=== PATIENT | female | born 1990 | race Caucasian/White ===

== ENCOUNTER → 2016-08-18 | Outpatient (REF) | payer BC, MEDICAID | LOC: M LAB REF 12:56 | PROVIDERS: ATTEND Advanced Practice Midwife | DX: Z34.02 Encounter for supervision of normal first pregnancy, second trimester (principal); Z36 Encounter for antenatal screening of mother; Z3A.00 Weeks of gestation of pregnancy not specified ==

== ENCOUNTER → 2016-09-15 | Outpatient (CLI) | payer BC, MEDICAID ==
--- NOTE | 2016-09-15 12:18 | REP ---
Obstetric ultrasound for anatomy: There is a single intrauterine gestation in a breech presentation. There is movement and cardiac activity, the heart rate is 136 beats per minute. The placenta is anterior. There is no placenta previa or abruptio. The placenta is grade 0 maturity. The amniotic fluid volume subjectively is normal. The cervix is 3.3 cm length. The maternal adnexa and cul-de-sac are unremarkable. By the ultrasound today the gestational age is 19 weeks 5 days with an CLARISA of 02/04/2017. Gestational age by LMP is 19 weeks 6 days. weight is 321 grams (a 0 pounds, 11 ounces). This is the 47th percentile for 19 weeks 6 days. The following anatomic structures are identified and are unremarkable: Intracranial lateral ventricles, choroid plexus, cerebellum, face, upper lip, facial profile, lungs, four-chamber heart, cardiac right and left ventricular outflow tracts, diaphragm, stomach, cord insertion, bladder and upper lower extremities. There is a single umbilical artery in the umbilical cord measuring a two vessel umbilical cord. The kidneys and spine are not optimally demonstrated. A followup study dedicated to these structures might be considered. Impression: Two-vessel cord. The kidneys and spine are not optimally demonstrated. Otherwise, no anomalies are identified. Signed by Manuelito Lambert MD 09/15/2016 12:10 P
== END ==
LOC: M RAD 10:24
PROVIDERS: ATTEND Advanced Practice Midwife
DX: Z36 Encounter for antenatal screening of mother (principal); Z3A.19 19 weeks gestation of pregnancy

== ENCOUNTER → 2016-09-30 | Outpatient (CLI) | payer BC, MEDICAID ==
--- NOTE | 2016-09-30 10:39 | REP ---
Clinical: Anatomical evaluation. Comparison: 09/15/2016 . Findings: Examination demonstrates a single live intrauterine in cephalic presentation. motion is identified by technologist. Placenta is noted anteriorly and grade I without evidence for placenta previa or abruption. Amniotic fluid volume is normal. Cervix measures 3.3 cm in length and appears closed. No evidence for nuchal cord. Gestational age by LMP 22 weeks 0 days with CLARISA 02/03/2017 . Gestational age by current measurements 22 weeks 0 days with CLARISA 02/03/2017 . FHR equals 141 beats per minute. Estimated weight 467 grams ( 45th percentile). Anatomical assessment demonstrates normal structures including cranium, choroid plexus, cavum, cerebellum/posterior fossa, facial features, lungs, four-chamber heart/ right ventricular outflow tract, diaphragm, stomach, cord insertion, kidneys/bladder, spine, and extremities. Two-vessel cord (single umbilical artery) noted. Impression: Single live intrauterine in cephalic presentation demonstrating appropriate interval growth. Single umbilical artery constitutes two-vessel cord. Remainder of the anatomical assessment is complete and normal. Signed by Sourav Ashford MD 09/30/2016 10:30 A
== END ==
LOC: M RAD 08:23
PROVIDERS: ATTEND Advanced Practice Midwife
DX: Z36 Encounter for antenatal screening of mother (principal); Z3A.22 22 weeks gestation of pregnancy

== ENCOUNTER 2016-11-01 08:02 | Outpatient (CLI) | payer MEDICAID ==
[~2016-11-01] VITALS: Ht 162.6 cm; Wt 64.0 kg
[2016-11-01] MEDS ORDERED: PRENTAB9 PO (08:22)
[2016-11-01 09:59] LABS: MEAN CORPUSCULAR HEMOGLOBIN 30.6 pg (27.0-33.0); MEAN CORPUSCULAR HGB CONC 34.1 g/dl (32.0-36.5); MEAN CORPUSCULAR VOLUME 89.9 fl (80.0-96.0); RED CELL DISTRIBUTION WIDTH 12.2 % (11.5-14.5); WHITE BLOOD COUNT 8.3 K/mm3 (4.0-10.0)
[2016-11-01 10:29] LABS: ALBUMIN 2.9 GM/DL (3.2-5.2); ALBUMIN/GLOBULIN RATIO 0.83 (1.00-1.93); ALKALINE PHOSPHATASE 49 U/L (45-117); ALT/SGPT 10 U/L (12-78); AMYLASE 45 U/L (25-115); AST/SGOT 15 U/L (15-37); BILIRUBIN,DIRECT < 0.1 MG/DL (0.0-0.2); BILIRUBIN,TOTAL 0.4 MG/DL (0.2-1.0); TOTAL PROTEIN 6.4 GM/DL (6.4-8.2)
--- NOTE | 2016-11-01 10:40 | REP ---
Clinical: Right upper quadrant pain with nausea. Findings: Liver and visualized pancreas are normal in contour, size, echogenicity without focal hepatic or pancreatic lesions identified. The gallbladder is without gallstones, wall thickening, or pericholecystic fluid. No sonographic Shaw's sign was elicited. A minuscule amount of gallbladder sludge and possible 3 mm polyp along the posterior wall are suggested. No biliary ductal dilatation is appreciated and the common bile duct measures 3.2 mm diameter. Right kidney is normal in reniform shape without hydronephrosis and measures 14.1 x 5.4 x 5.1 cm. No ascites. Impression: Examination is relatively within normal limits as described above. Signed by Sourav Ashford MD 11/01/2016 10:31 A
--- NOTE | 2016-11-01 10:43 | REP ---
Clinical: contractions. Comparison: 09/30/2016. Findings: Ultrasound examination demonstrates a single live intrauterine in cephalic presentation. motion was identified by technologist and there is evidence for nuchal cord. The placenta is identified anteriorly and grade zero without evidence for placenta previa or abruption. Amniotic fluid volume is within normal limits. Cervix measures 3.3 cm in length and appears closed. Gestational age by first ultrasound 26 weeks 3 days. heart rate equals 136 beats per minute. Amniotic fluid index equals 14.5 cm (9.6 - 22.5). Impression: Cervix measures 3.3 cm in length and appears closed. Amniotic fluid volume normal. Nuchal cord noted. Signed by Sourav Ashford MD 11/01/2016 10:34 A
[2016-11-01] MEDS ORDERED: PERCOCET 5MG/325MG TAB PO PRN (11:15)
== END 2016-11-01 14:05 | disposition home or self-care (01) ==
LOC: M LDO 08:02
PROVIDERS: ATTEND Advanced Practice Midwife
DX: O26.892 Other specified pregnancy related conditions, second trimester (principal); Z3A.26 26 weeks gestation of pregnancy

== ENCOUNTER → 2016-11-26 | Outpatient (CLI) | payer MEDICAID ==
[~2016-11-26] MED LIST: PRENTAB9 PO
[2016-11-26 19:13] LABS: MEAN CORPUSCULAR HEMOGLOBIN 30.6 pg (27.0-33.0); MEAN CORPUSCULAR HGB CONC 33.1 g/dl (32.0-36.5); MEAN CORPUSCULAR VOLUME 92.5 fl (80.0-96.0); RED CELL DISTRIBUTION WIDTH 12.6 % (11.5-14.5); WHITE BLOOD COUNT 8.3 K/mm3 (4.0-10.0)
== END ==
LOC: M LAB 15:49
PROVIDERS: ATTEND Advanced Practice Midwife
DX: Z36 Encounter for antenatal screening of mother (principal); Z3A.00 Weeks of gestation of pregnancy not specified

== ENCOUNTER 2016-12-30 14:00 | Outpatient (CLI) | payer MEDICAID ==
[~2016-12-30] VITALS: Ht 162.6 cm; Wt 65.0 kg
[~2016-12-30 14:00] MED LIST changes: -ACET50TA PO; -MACR100C3 PO
[2016-12-30] MEDS ORDERED: LR 1,000 ML IV ONE (14:15)
[2016-12-30] MEDS ORDERED: ACET50TA PO (14:18)
[2016-12-30 14:20] VITALS: BP 105/61
[2016-12-30 14:48] LABS: BASO % 0.2 % (0.0-1.0); EOS # 0.1 K/mm3 (0.0-0.50); EOS % 1.2 % (0.0-3.0); LARGE UNSTAINED CELL # 0.1 K/mm3 (0.0-0.4); LARGE UNSTAINED CELL % 0.5 % (0.0-4.0); LYMPH # 1.8 K/mm3 (1.5-6.5); LYMPH % 17.6 % (24.0-44.0); MEAN CORPUSCULAR HEMOGLOBIN 32.6 pg (27.0-33.0); MEAN CORPUSCULAR HGB CONC 35.8 g/dl (32.0-36.5); MEAN CORPUSCULAR VOLUME 91.2 fl (80.0-96.0); MONO # 0.4 K/mm3 (0.0-0.8); MONO % 4.5 % (0.0-5.0); NEUTROPHILS # 7.4 K/mm3 (1.8-7.7); NEUTROPHILS % 75.9 % (36.0-66.0); PLATELET COUNT, AUTOMATED 216 k/mm3 (150-450); RED CELL DISTRIBUTION WIDTH 12.3 % (11.5-14.5); WHITE BLOOD COUNT 9.8 K/mm3 (4.0-10.0)
[2016-12-30] MEDS: LR 1,000 ML IV SCH ×2 (15:26→17:07)
[2016-12-30] MEDS ORDERED: ceFAZolin SOD 1 GM in D5W MINI-BAG PLUS 50 ML IV ONE (16:45)
[2016-12-30] MEDS ORDERED: MACR100C3 PO (16:49)
== END 2016-12-30 17:40 | disposition home or self-care (01) ==
LOC: M LDO 14:00
PROVIDERS: ATTEND Advanced Practice Midwife
DX: O26.893 Other specified pregnancy related conditions, third trimester (principal); Z3A.33 33 weeks gestation of pregnancy
CPT/HCPCS: 36415; 59025; 80307; 81001; 85025; 96374; J0690

== ENCOUNTER → 2016-12-30 | Outpatient (REF) | payer MEDICAID ==
[~2016-12-30] MED LIST changes: +ACET50TA PO; +MACR100C3 PO
== END ==
LOC: M LAB REF 16:52
PROVIDERS: ATTEND Advanced Practice Midwife
DX: Z34.83 Encounter for supervision of other normal pregnancy, third trimester (principal)

== ENCOUNTER 2017-01-14 15:38 | Outpatient (CLI) | payer MEDICAID, OTHER ==
[~2017-01-14] VITALS: Ht 162.6 cm; Wt 65.0 kg
[~2017-01-14 15:38] MED LIST changes: +ACET50TA PO; +MACR100C3 PO
[2017-01-14 15:52] VITALS: BP 112/58
[2017-01-14 19:38] VITALS: BP 102/63
[2017-01-20] MEDS ORDERED: PERCOCET PO (08:02)
[2017-01-21] MEDS ORDERED: COLA100C3 PO (17:46)
== END 2017-01-14 19:58 | disposition home or self-care (01) ==
LOC: M LDO 15:38
PROVIDERS: ATTEND Obstetrics & Gynecology
DX: O47.1 False labor at or after 37 completed weeks of gestation (principal); Z3A.37 37 weeks gestation of pregnancy

== ENCOUNTER 2017-01-19 20:46 | Inpatient (IN) | payer OTHER ==
[~2017-01-19] VITALS: Ht 165.1 cm; Wt 70.0 kg
[~2017-01-19 20:46] MED LIST changes: -MACR100C3 PO; +MACR100C43 PO
[2017-01-19 21:12] VITALS: BP 124/81
[2017-01-19] MEDS ORDERED: LR 1,000 ML IV ONE (21:45)
[2017-01-19 22:16] LABS: MEAN CORPUSCULAR HEMOGLOBIN 31.9 pg (27.0-33.0); RED CELL DISTRIBUTION WIDTH 12.2 % (11.5-14.5); WHITE BLOOD COUNT 11.2 K/mm3 (4.0-10.0)
[2017-01-19] MEDS ORDERED: LR 1,000 ML IV SCH (22:57)
[2017-01-19] MEDS ORDERED: LACTATED RINGER'S 1000 ML IV STA (22:57)
[2017-01-19] MEDS ORDERED: ceFAZolin 2 GM/D5W 50 ML IV BAG (J0690) As Ordered ONE (22:58)
[2017-01-19] MEDS ORDERED: BICITRA 30ML SOLN UDC As Ordered ONE (22:58)
[2017-01-19] MEDS ORDERED: BICITRA 30ML SOLN UDC PO ONE (23:00)
[2017-01-19] MEDS ORDERED: MORPHINE PRES-FREE INJ 10 MG/10 ML VIAL (J2274) As Ordered ONE (23:06)
[2017-01-19] MEDS ORDERED: OXYTOCIN INJ 10 UNITS/ML VIAL (J2590) As Ordered ONE (23:07)
[2017-01-19 23:08] VITALS: BP 130/80
[2017-01-19] MEDS ORDERED: ONDANSETRON 4MG/2ML VIAL (J2405) IV PRN (23:21)
[2017-01-19] MEDS ORDERED: NALBUPHINE HCL 10 MG/ML AMP (J2300) IV PRN (23:21)
[2017-01-19] MEDS ORDERED: METOCLOPRAMIDE INJ 10MG/2ML VIAL (J2765) IV PRN (23:21)
[2017-01-19] MEDS ORDERED: NALOXONE INJ 0.4 MG/1 ML VIAL (J2310) IV PRN ×2 (23:21)
--- NOTE | 2017-01-19 23:30 | REPUSA ---
OBSTETRICAL ULTRASOUND INDICATION: OB screening. FINDINGS: A single live intrauterine gestation was identified with a heart rate of 132 bpm. Th e amniotic fluid index was normal measuring 12.7 cm. The placenta was anterior, without evidence of placenta previa.Systolic/diastolic ratio measures 3.66. Normal tone was appreciated, but breathing movementsand body movements were not visualized. IMPRESSION: 1. Single live fetus with a heart rate of 132 bpm. 2. Biophysical profile measures 11/14.
[2017-01-19] MEDS ORDERED: MIDAZOLAM INJ 2 MG/2 ML VIAL (J2250) As Ordered ONE (23:40)
[2017-01-19] MEDS ORDERED: fentaNYL 100 MCG/2 ML INJECTION (J3010) As Ordered ONE (23:41)
[2017-01-19] MEDS ORDERED: ePHEDrine SULFATE 25 MG/5 ML(5MG/ML) SYRINGE As Ordered ONE (23:47)
[2017-01-19] MEDS ORDERED: ATROPINE SULF 0.4 MG/ML 1ML VIAL (J0461) As Ordered ONE (23:47)
[2017-01-19] MEDS ORDERED: PHENYLephrine HCL 500 MCG/5 ML (100MCG/ML) SYRINGE (J2370) As Ordered ONE (23:47)
[2017-01-20] VITALS (20 sets, daily range): BP systolic 100–125; BP diastolic 57–79
[2017-01-20] MEDS ORDERED: fentaNYL 100 MCG/2 ML INJECTION (J3010) As Ordered ONE ×3 (00:03→00:36)
[2017-01-20] MEDS ORDERED: PERCOCET 5MG/325MG TAB PO PRN ×4 (00:30→11:00)
[2017-01-20] MEDS ORDERED: DOCUSATE SODIUM 100 MG CAP PO PRN (00:30)
[2017-01-20] MEDS ORDERED: RHOGAM 300 MCG (1500 IU) INJ (J2790) IM SCH (00:30)
[2017-01-20] MEDS ORDERED: LR 1,000 ML IV SCH ×2 (00:30→00:45)
[2017-01-20] MEDS ORDERED: MEASLES,MUMPS,RUBELLA VACCINE INJ (MMR-II) (90707) SC SCH (00:30)
[2017-01-20] MEDS ORDERED: OXYTOCIN DRIP 30 UNITS in APPROPRIATE DILUENT 1 EA IV ONE (00:30)
[2017-01-20] MEDS ORDERED: MOM 30ML SUSPENSION UDC PO PRN (00:30)
[2017-01-20] MEDS: fentaNYL 100 MCG/2 ML INJECTION (J3010) IV PRN ×4 (00:38→00:53)
[2017-01-20] MEDS ORDERED: METOCLOPRAMIDE INJ 10MG/2ML VIAL (J2765) IV PRN (00:45)
[2017-01-20 00:46] LABS: CORD GAS ABE A -6.7; CORD GAS HCO3 A 21.3 MEQ/L; CORD GAS O2 SAT A 41.9 %; CORD GAS PCO2 A 51.1 mmHg; CORD GAS PH A 7.237 UNITS; CORD GAS PO2 A 20.9 mmHg; CORD GAS SBC A 17.8 MEQ/L; CORD GAS TCO2 A 22.8 MEQ/L
[2017-01-20 00:48] LABS: CORD GAS ABE V -7.1; CORD GAS HCO3 V 20.5 MEQ/L; CORD GAS O2 SAT V 38.9 %; CORD GAS PCO2 V 48.3 mmHg; CORD GAS PH V 7.245 UNITS; CORD GAS PO2 V 18.9 mmHg; CORD GAS SBC V 17.5 MEQ/L
[2017-01-20] MEDS ORDERED: HYDROmorphone HCL 1 MG/ML SYRINGE (J1170) As Ordered ONE ×2 (00:56→01:07)
[2017-01-20] MEDS: HYDROmorphone HCL 1 MG/ML SYRINGE (J1170) IV PRN ×5 (00:58→01:20)
--- NOTE | 2017-01-20 05:37 | HPE ---
DATE OF ADMISSION: 01/19/2017 REASON FOR ADMISSION: Decreased movement with non-reassuring testing. HISTORY OF PRESENT ILLNESS: Ms. Amaya is a 26-year-old 1 who presented at 37 weeks and 5 days estimated gestational age by her last menstrual period confirmed by first trimester ultrasound with complaints of decreased movement. She reported for the last two days that she has noticed decrease in movement. She has also complained of abdominal pain with a contraction and pelvic pressure. She denied any vaginal bleeding or leakage of fluid. Her course has been unremarkable. She is a transfer of care at 28 weeks, but has had appropriate visit throughout. PAST MEDICAL HISTORY: She has a history of anxiety as well as stress disorder. PAST SURGICAL HISTORY: She has had tonsillectomy. MEDICATIONS: vitamins. ALLERGIES: She has sensitivities to ASPIRIN and IBUPROFEN, but denies any allergic reaction. SOCIAL HISTORY: She reports use of E-cigarettes as well as marijuana during the . PHYSICAL EXAMINATION: Her vital signs are stable. She is afebrile. Initially reported to have a category 2 heart rate tracing, at which time biophysical profile (BPP) was initiated. On review of the tracing, it is category 3 heart rate tracing with no to minimal variability with repetitive late decelerations. I did interrupted biophysical profile, at which time 22 minutes had elapsed with only fluid and tone reported, giving it a score of 4/10, at which time I made a decision to proceed emergently for section for non-reassuring testing. The remainder of her physical exam: LUNGS: Clear to auscultation bilaterally. CARDIAC: Heart with regular rate and rhythm. ABDOMEN: Gravid, tender to palpation. CERVICAL EXAM: She was 1 cm dilated, 90% effaced. LABORATORY DATA: Her blood type is A positive. Antibody screen negative. Rubella immune. RPR is nonreactive. Hepatitis surface antigen is negative. HIV is negative. Chlamydia and gonorrhea screen is negative. She had a normal one-hour Glucola of 117. She is GBS negative. ASSESSMENT: 1. This patient is a 26-year-old 1 at 37 weeks and five days estimated gestational age by last menstrual period, confirmed by first trimester ultrasound, with non-reassuring testing. 2. Remote from delivery. PLAN: The patient was thoroughly counseled in regards to 4/10 BPP with non-reassuring tracing category 3, remote from delivery. She was counseled for a primary section with the above indication. The plan is to proceed with an emergent section. Anesthesia and intensive care unit (NICU) have been notified. KAITLYNN
--- NOTE | 2017-01-20 06:18 | RO ---
DATE OF PROCEDURE: 01/19/2017 PREPROCEDURE DIAGNOSES: 1. Non-reassuring testing. 2. 4 out of 10 biophysical profile. POSTPROCEDURE DIAGNOSES: 1. Non-reassuring testing. 2. 4 out of 10 biophysical profile. 3. Placenta abruption. PROCEDURE: Primary lower transverse section. SURGEON: Fabiana Freed MD SOLAR TECH: Merlin Woods MD ANESTHESIA: Initially spinal was placed but was converted to general anesthesia secondary to inadequate spinal anesthesia. ESTIMATED BLOOD LOSS: 500 mL. INTRAVENOUS FLUIDS: 1200 mL. URINE OUTPUT: 250 mL. PREOPERATIVE ANTIBIOTICS: 2 grams of Ancef. OPERATIVE FINDINGS: Placenta organized clot consistent with placenta abruption. Delivery was productive of a live born male infant, 7 and 8, weight 5 pounds 5 ounces or 2410 grams. SPECIMENS: Cord blood, cord gases and placenta. DESCRIPTION OF OPERATION: After informed consent was obtained and written content was reviewed, the patient was brought to the operating room where spinal anesthesia was placed. Davies catheter was placed and set to gravity. Patient was then prepped and draped in a normal sterile fashion. Anesthesia was tested and was deemed to be inadequate. Decision was made to proceed with general anesthesia which was placed followed by Pfannenstiel skin incision which was carried down to the underlying rectus fascia. The fascia was scored and this incision was extended bilaterally. The rectus muscles were in the midline. The peritoneum was then entered. The vesicouterine peritoneum was then identified. It was tented and excised to create a bladder flap. The bladder blade was then placed to retract back the bladder. A curvilinear incision was then made in the lower uterine segment. head was delivery atraumatically followed by delivery of shoulders and corpus. There was a nuchal cord that was noted. The cord was clamped times two and the was brought over to the warmer with a good cry. The placenta was then delivered spontaneously with a large amount of clot that was organized as well as a large clot following delivery of the placenta once again consistent with placenta abruption. The uterus was then exteriorized and cleared of all clots and debris. The uterine incision was then closed in two layers using #0 Vicryl. The first layer in a running locking fashion followed by a second layer of imbrication in a running nonlocking fashion. The abdomen was then suctioned. The uterus was returned and the patient's abdomen was inspected and noted to be hemostatic. The anterior peritoneum was then reapproximated with #3-0 Vicryl. The rectus muscles were reapproximated using #3-0 Vicryl. The fascia was then closed using #0 Vicryl in a running nonlocking fashion. The subcutaneous tissue was then irrigated and suctioned. The subcutaneous tissue was reapproximated with #3-0 Vicryl. Several subdermal stitches were placed with #3-0 Vicryl. The skin was closed with #4-0 Monocryl in a subcuticular fashion. Incision was then cleaned and dried. Mastisol was applied above and below the incision. Steri-Strips were applied over the incision. The incision was dressed. The patient was then awakened from general anesthesia and taken to recovery in stable condition. Counts were correct.
[2017-01-20] MEDS ORDERED: PERCOCET PO (08:02)
[2017-01-20] MEDS: PRENATAL VITAMIN TAB PO SCH (08:41)
[2017-01-20] MEDS: PERCOCET 5MG/325MG TAB PO PRN ×3 (11:22→20:20)
[2017-01-21] MEDS: PERCOCET 5MG/325MG TAB PO PRN ×4 (00:54→14:14)
[2017-01-21 06:13] VITALS: BP 120/70
[2017-01-21 08:04] LABS: MEAN CORPUSCULAR HEMOGLOBIN 31.7 pg (27.0-33.0); MEAN CORPUSCULAR HGB CONC 34.3 g/dl (32.0-36.5); MEAN CORPUSCULAR VOLUME 92.5 fl (80.0-96.0); RED CELL DISTRIBUTION WIDTH 12.6 % (11.5-14.5); WHITE BLOOD COUNT 8.1 K/mm3 (4.0-10.0)
[2017-01-21] MEDS: PRENATAL VITAMIN TAB PO SCH (08:56)
[2017-01-21] MEDS ORDERED: COLA100C5 PO (17:46)
[2017-01-25 14:17] LABS: GC Morphine 745 ng/mL (Cutoff=200)
--- NOTE | 2017-02-05 09:02 | DSES ---
DATE OF ADMISSION: 01/19/2017 DATE OF DISCHARGE: 01/21/2017 DISCHARGE DIAGNOSIS: 1. Primary lower transverse section for placenta abruption. DISCHARGE CONDITION: Stable. HISTORY AND HOSPITAL COURSE: This patient is a 26-year-old, 1, that presented at 37 weeks 5 days estimated gestational age by last menstrual period and confirmed by a first trimester ultrasound with nonreassuring testing remote to delivery. She received a 4 out of 10 biophysical profile as well as a Category 3 heart rate tracing with repetitive late decelerations and minimum variability. She was counseled for emergent section which was unremarkable. Estimated blood loss was 500 mL. section showed consistency with placenta abruption and productive of a live born male infant, Apgars 7 and 8. Weight was 5 pounds 5 ounces or 2410 grams. The patient did well postoperatively. By postoperative day #2, she had met all discharge criteria. She was discharged home in stable condition. PHYSICAL EXAMINATION ON DATE OF DISCHARGE: Her vital signs were stable. She was afebrile. General appearance was well appearing in no acute distress. Her abdomen was soft, appropriately tender. Incision was clean, dry and intact, well approximated and nonerythemic. Extremities were negative for calf tenderness. DISCHARGE MEDICATION: Percocet DISCHARGE INSTRUCTIONS: 1. She was instructed to followup in 2 weeks for incision check. 2. To remain on pelvic rest. 3. To report severed pain, heavy vaginal bleeding, fever or breast feeding issues.
== END 2017-01-21 18:55 | disposition home or self-care (01) | DRG 540 ==
LOC: M LDO 20:46 → M LDI 22:41 → M OBS 01-20 01:41
PROVIDERS: ADMIT Obstetrics & Gynecology; ATTEND Obstetrics & Gynecology
PROC: 10D00Z1 Extraction of Products of Conception, Low, Open Approach (ICD-10-PCS; principal; 2017-01-19 23:11)
DX: O76 Abnormality in fetal heart rate and rhythm complicating labor and delivery (principal); O45.93 Premature separation of placenta, unspecified, third trimester; O86.4 Pyrexia of unknown origin following delivery; Z3A.37 37 weeks gestation of pregnancy; O36.8130 Decreased fetal movements, third trimester, not applicable or unspecified; Z37.0 Single live birth

== ENCOUNTER → 2017-06-22 | Outpatient (REF) | payer OTHER, MEDICAID ==
[~2017-06-22] MED LIST changes: +COLA100C5 PO; +PERCOCET PO
== END ==
LOC: M LAB REF 18:03
PROVIDERS: ATTEND Obstetrics & Gynecology
DX: Z12.4 Encounter for screening for malignant neoplasm of cervix (principal); R87.610 Atypical squamous cells of undetermined significance on cytologic smear of cervix (ASC-US)